=== PATIENT | male | born 1950 | race Caucasian/White ===

== ENCOUNTER 2020-01-08 05:03 | Inpatient (IN) | payer MEDICARE ==
[~2020-01-08] VITALS: Ht 177.8 cm; Wt 97.7 kg
[2020-01-08] MEDS ORDERED: ASPirin 81 mg TAB PO ONE (05:15)
[2020-01-08 07:19] LABS: Basophils # (auto) 0 10 ^3/uL (0-0.2); Basophils % (auto) 0.4 % (0.0-2.0); Eosinophils # (auto) 0.1 10 ^3/uL (0-0.8); Eosinophils % (auto) 0.5 % (0.0-7.0); Hematocrit 47.7 % (41.0-53.0); Hemoglobin 16.5 g/dL (13.5-17.5); Lymphocytes # (auto) 1.3 10 ^3/uL (0.4-5.4); Lymphocytes % (auto) 9.8 % (10.0-50.0); Mean Corpuscular Hemoglobin 28.7 pg (28.0-32.0); Mean Corpuscular Hgb Conc. 34.6 g/dL (32.0-36.0); Mean Corpuscular Volume 82.9 fL (80.0-100.0); Monocytes % (auto) 7.8 % (0.0-12.0); Neutrophils # (auto) 10.7 10 ^3/uL (1.6-8.6); Neutrophils % (auto) 81.5 % (37.0-80.0); Platelet Count (auto) 133 10^3/uL (140-450); Red Blood Cells 5.76 10^6/uL (4.5-5.90); Red Cell Distribution Width 14.2 % (11.8-14.3); White Blood Cell 13.1 10^3/uL (4.4-10.8)
[2020-01-08] MEDS ORDERED: cloNIDine HCL 0.1 MG TAB PO ONE (07:30)
[2020-01-08 07:31] LABS: INR 1.03 (0.9-1.15); Partial Thromboplastin Time 26.7 sec (23.0-31.2)
[2020-01-08 07:36] LABS: Potassium 3.5 mmol/L (3.5-5.1)
[2020-01-08 07:48] LABS: Albumin 4.1 g/dL (3.4-5.0); BUN/Creatinine Ratio 19.5; Bilirubin, Total 0.7 mg/dL (0.2-1.0); Magnesium 2.2 mg/dL (1.6-2.6); Total Protein 7.4 g/dL (6.4-8.2)
[2020-01-08] MEDS ORDERED: LACTULOSE 20Gm/30ML SOLN PO PRN (09:00)
[2020-01-08] MEDS ORDERED: ACETAMINOPHEN 500 MG TAB PO PRN (09:00)
[2020-01-08] MEDS ORDERED: NITROGLYCERIN 0.4 MG SL TAB SL PRN (09:00)
[2020-01-08] MEDS ORDERED: MORPHINE SULF INJ 2 MG/ML SYRINGE 1ML IV PRN (09:00)
[2020-01-08] MEDS ORDERED: PROMETHAZINE HCL 25 MG/ML 1ML IV PRN (09:00)
[2020-01-08] MEDS ORDERED: TEMAZEPAM 15 MG CAP PO PRN (09:00)
[2020-01-08] MEDS ORDERED: DEXTROSE (50%) 50ML SYRG IV PRN (09:00)
[2020-01-08] MEDS ORDERED: NITROGLYCERIN 50MG/250ML 250 ML IV SCH (09:00)
[2020-01-08] MEDS: SODIUM CHLORIDE 0.9% 1,000 ML IV SCH ×2 (09:33→22:36)
[2020-01-08] MEDS: ASPirin 81 mg TAB PO SCH (09:34)
[2020-01-08] MEDS: FAMOTIDINE 20 MG TAB PO SCH ×2 (09:34→22:35)
[2020-01-08] MEDS: METOPROLOL TARTRATE 25 MG TAB PO SCH ×2 (09:34→22:35)
[2020-01-08] MEDS: ENOXAPARIN SOD 40 MG/0.4 ML SYRINGE SC SCH (09:34)
[2020-01-08] MEDS: ENALAPRIL MALEATE 10 MG TAB PO SCH (09:37)
[2020-01-08] MEDS ORDERED: NITROGLYCERIN 0.4 MG SL TAB SL ONE (10:00)
[2020-01-08 10:10] LABS: Alcohol, Urine < 3.0 mg/dL (0-10); Amphetamine Screen, Urine NEGATIVE (NEGATIVE); Barbiturate Scree,Urine NEGATIVE (NEGATIVE); Cannabinoid Screen, Urine POSITIVE (NEGATIVE)
[2020-01-08 10:17] LABS: Benzodiazephine Screen, Urine NEGATIVE (NEGATIVE); Cocaine Screen, Urine NEGATIVE (NEGATIVE); Opiate Scree,Urine NEGATIVE (NEGATIVE); Phencyclidine Screen, Urine NEGATIVE (NEGATIVE)
[2020-01-08] MEDS ORDERED: CLOPIDOGREL BISULFATE 75 MG TAB PO ONE (10:45)
[2020-01-08] MEDS: InsuLIN REG 1unit/0.01ml Soln (100units/ml) SC SCH ×3 (11:55→22:00)
[2020-01-08] MEDS: ACCU-CHEK COMFORT CURVE STRIP VI SCH ×3 (12:02→22:36)
[2020-01-08] MEDS ORDERED: IBAN1TAB3 PO (13:06)
[2020-01-08] MEDS ORDERED: PAR20T PO (13:06)
[2020-01-08] MEDS ORDERED: LISI-646 PO (13:06)
[2020-01-08] MEDS ORDERED: TAM04C PO (13:06)
[2020-01-08] MEDS ORDERED: FLUT1SPR5 NAS (13:06)
[2020-01-08] MEDS ORDERED: ATE50T PO (13:06)
[2020-01-08] MEDS ORDERED: CLOP75TA28 PO (13:06)
[2020-01-08] MEDS ORDERED: ATOR1TAB PO (13:06)
[2020-01-08] MEDS ORDERED: [UNRECOGNIZED DRUG - CODE] PO (13:06)
[2020-01-08] MEDS ORDERED: NIFEdipine ER 30 MG TAB PO ONE (14:00)
[2020-01-08] MEDS: traMADol HCL 50 MG TAB PO PRN (20:14)
[2020-01-08] MEDS ORDERED: LORazepam 2MG/ML-1ML VIAL IV ONE (22:00)
[2020-01-08] MEDS: ATORVASTATIN 20 MG TAB PO SCH (22:35)
[2020-01-09] VITALS (8 sets, daily range): BP systolic 150–176; BP diastolic 84–110
[2020-01-09] MEDS: ACCU-CHEK COMFORT CURVE STRIP VI SCH ×4 (06:33→23:00)
[2020-01-09] MEDS: InsuLIN REG 1unit/0.01ml Soln (100units/ml) SC SCH ×4 (06:37→23:00)
--- NOTE | 2020-01-09 07:35 | NUR ---
Opening Note Assumed pt care from TYSHAWN RN. Pt is a/ox4 with no s/s of distress or SOB. Pt is currently laying in bed with no complaints at this time. Pt is currently on 3 L via NC. Discussed POC with pt and pending [facility]. Pt has been NPO since 0000. Safety measures maintained with call light within reach, bed in lowest position and side rails up. Will continue to monitor for changes.
[2020-01-09 07:57] LABS: Basophils # (auto) 0 10 ^3/uL (0-0.2); Basophils % (auto) 0.3 % (0.0-2.0); Eosinophils # (auto) 0.1 10 ^3/uL (0-0.8); Eosinophils % (auto) 1.2 % (0.0-7.0); Hematocrit 46.8 % (41.0-53.0); Hemoglobin 15.9 g/dL (13.5-17.5); Lymphocytes # (auto) 1.8 10 ^3/uL (0.4-5.4); Lymphocytes % (auto) 17.3 % (10.0-50.0); Mean Corpuscular Hemoglobin 28.4 pg (28.0-32.0); Mean Corpuscular Hgb Conc. 33.9 g/dL (32.0-36.0); Mean Corpuscular Volume 83.7 fL (80.0-100.0); Monocytes # (auto) 1.6 10 ^3/uL (0-1.3); Monocytes % (auto) 15.3 % (0.0-12.0); Neutrophils % (auto) 65.9 % (37.0-80.0); Nucleated Red Blood Cells % 0.2 %; Platelet Count (auto) 128 10^3/uL (140-450); Red Cell Distribution Width 14.3 % (11.8-14.3); White Blood Cell 10.6 10^3/uL (4.4-10.8)
[2020-01-09 08:14] LABS: INR 1.07 (0.9-1.15); Partial Thromboplastin Time 26.8 sec (23.0-31.2)
[2020-01-09 08:27] LABS: Albumin 3.8 g/dL (3.4-5.0); BUN/Creatinine Ratio 21.4; Calcium 9.2 mg/dL (8.5-10.1); Potassium 3.5 mmol/L (3.5-5.1)
[2020-01-09 08:33] LABS: Bilirubin, Total 0.7 mg/dL (0.2-1.0)
[2020-01-09] MEDS: ASPirin 81 mg TAB PO SCH (08:43)
[2020-01-09] MEDS: ENOXAPARIN SOD 40 MG/0.4 ML SYRINGE SC SCH (08:44)
[2020-01-09] MEDS: ENALAPRIL MALEATE 10 MG TAB PO SCH (08:48)
[2020-01-09] MEDS: CLOPIDOGREL BISULFATE 75 MG TAB PO SCH (08:48)
[2020-01-09] MEDS: NIFEdipine ER 30 MG TAB PO SCH (08:48)
[2020-01-09] MEDS: FAMOTIDINE 20 MG TAB PO SCH (08:48)
[2020-01-09] MEDS: METOPROLOL TARTRATE 25 MG TAB PO SCH (08:49)
--- NOTE | 2020-01-09 10:40 | NUR ---
MIDLINE SPOKE WITH KELSY RAMIREZ RN REGARDING MIDLINE ORDER. KELSY STATED HE HAS A GOOD 20 G TO HIS RIGHT HAND AT THIS TIME AN NO MIDLINE IS REQUIRED.
[2020-01-09] MEDS: SODIUM CHLORIDE 0.9% 1,000 ML IV SCH (11:14)
[2020-01-09] MEDS ORDERED: LIDOCAINE 2%HCL (LOCAL ANESTH.) INJ 20ML MDV ONE (12:16)
[2020-01-09] MEDS ORDERED: IODIXANOL 320MG/ML 100ML BTL IV ONE (12:16)
--- NOTE | 2020-01-09 12:19 | NUR ---
Pt Taken to [facility] Pt taken via bed to crime lab technician. All questions were answered by staff. Pt is a/ox4 with no s/s of distress.
[2020-01-09] MEDS ORDERED: VERAPAMIL 2.5MG/ML INJ 2ML VIAL IV ONE (14:05)
[2020-01-09] MEDS ORDERED: ANGIOMAX 250 MG VIAL IV ONE (14:05)
[2020-01-09] MEDS ORDERED: MIDAZOLAM HCL 1MG/1ML-2 ML VIAL ONE (14:05)
[2020-01-09] MEDS ORDERED: fentaNYL CITRATE 100 MCG/2 ML VL ONE (14:05)
[2020-01-09] MEDS ORDERED: HEPARIN SODIUM (PORCINE) 5000 UNITS/ML 1ML VIAL ONE (14:05)
[2020-01-09] MEDS ORDERED: SODIUM CHL 0.9% 0 ML ONE (14:06)
[2020-01-09] MEDS ORDERED: IOHEXOL 350 MG/ML 100ML IJ ONE (14:18)
[2020-01-09] MEDS ORDERED: METOPROLOL TARTRATE 1MG/1ML-5ML VIAL IV ONE (14:46)
[2020-01-09] MEDS ORDERED: ASPirin 81 mg TAB ONE (14:57)
--- NOTE | 2020-01-09 15:02 | NUR ---
Patient brought to recovery via bed, report received from Torie RN and Lorne RN. Patient is AO x 4, NAD noted. Right groin site is benign no s/s of bleeding or hematoma formation. Dressing in place and is CDI. Positive cirulation, movement and sensation noted to BLE. Patient denies pain at this time. Verbalized understanding to post-procedure instructions and flat time.
--- NOTE | 2020-01-09 15:17 | NUR ---
Patient resting in bed with eyes closed. Breaths are even and unlabored. NAD noted. Right groin site remains unchanged.
--- NOTE | 2020-01-09 15:35 | NUR ---
Report given to primary RN, Roxanne.
--- NOTE | 2020-01-09 15:55 | NUR ---
Patient taken to telemetry unit via bed, vehicle monitor technician in place. NAD noted upon departure. Primary RNRoxanne present at bedside to witness right groin site benign no s/s of bleeding or hematoma formation. Bed set in lowest locked position with side rails up x 2, call light is within reach and bed alarm set on for safety. Care endorsed to AKHIL Oliveira.
--- NOTE | 2020-01-09 16:00 | NUR ---
Pt Back on Unit Pt arrived back on unit from general laborer. Pt is a/ox4 with no s/s of distress. Site to R groin is clean, dry and intact. Safety measures initiated with call light within reach, bed in lowest position and side rails up. Will continue to monitor. Addendum: 01/09/20 at 1617 by PHIL SCHAFER RN RN Elevated BP upon arrival to unit. Will recheck and reassess BP and utilize PRNS as needed. Addendum: 01/09/20 at 1711 by PHIL SCHAFER RN RN Pt has sat up. Site is asymptomatic. Will continue to monitor.
[2020-01-10] MEDS: ATORVASTATIN 20 MG TAB PO SCH ×2 (00:15→22:00)
[2020-01-10] MEDS: METOPROLOL TARTRATE 25 MG TAB PO SCH ×2 (00:17→10:31)
[2020-01-10] MEDS: FAMOTIDINE 20 MG TAB PO SCH ×3 (00:17→22:00)
[2020-01-10] MEDS: traMADol HCL 50 MG TAB PO PRN (00:18)
[2020-01-10] MEDS: SODIUM CHLORIDE 0.9% 1,000 ML IV SCH ×2 (00:40→14:20)
--- NOTE | 2020-01-10 03:18 | NUR ---
Pt had episode of syncope while sitting on side of bed attempting to stand to use urinal falling backard across foot of bed. Pt quickly regained consciousness. Yolanda and Lorri, Jeffrey, with pt and state he regained consciouness upon falling across bed. Pt voided incont while lieing on bed. Linens an gown changed. Repositione in bed by the Esha and this RN and AKHIL Hanna. Pt suddenly cried out and tried to reach for urinal. Small amount urine in urinal. Cyndi assisting pt, urine poured out on bed. Pt able to complete void into urinal. Yolanda and this RN changed pt's linens again and gown. VS 153/72; HR 69; RR 20; and O2 sat on RA. O2 replaced at 3lpm. Pt supine in bed with HOB in semi-Cruz's position. Easily dropping back off to sleep then roused to c/o nausea. Promethazine 12.5 mg slow IV given. BG 165. Pt again attempting to sleep.
[2020-01-10 05:00] VITALS: BP 153/72
[2020-01-10] MEDS: ACCU-CHEK COMFORT CURVE STRIP VI SCH ×4 (06:57→22:00)
[2020-01-10] MEDS: InsuLIN REG 1unit/0.01ml Soln (100units/ml) SC SCH ×4 (07:00→22:00)
--- NOTE | 2020-01-10 08:00 | NUR ---
OPENING SHIFT NOTE ASSUMED CARE OF PATIENT AWAKE AND ALERT. NO S/S OF DISTRESS NOTED OR COMPLAINTS OF PAIN. PATIENT UPDATED ON POC FOR THE DAY AND ALL QUESTIONS ANSWERED. BED IS IN LOWEST, LOCKED POSITION WITH SIDE RAILS UP X2 AND CALL LIGHT WITHIN REACH. WILL CONTINUE TO MONITOR Q1H AND PRN.
--- NOTE | 2020-01-10 08:02 | NUR ---
AT BEDSIDE DR PETERSEN AT BEDSIDE ROUNDING ON PATIENT
[2020-01-10 09:00] VITALS: BP 154/89
[2020-01-10 09:24] LABS: Basophils # (auto) 0 10 ^3/uL (0-0.2); Basophils % (auto) 0.4 % (0.0-2.0); Eosinophils # (auto) 0.1 10 ^3/uL (0-0.8); Eosinophils % (auto) 1.4 % (0.0-7.0); Lymphocytes # (auto) 1.8 10 ^3/uL (0.4-5.4); Mean Corpuscular Hgb Conc. 33.5 g/dL (32.0-36.0); Monocytes # (auto) 1.3 10 ^3/uL (0-1.3)
[2020-01-10 09:26] LABS: Hematocrit 51.1 % (41.0-53.0); Hemoglobin 17.1 g/dL (13.5-17.5); Lymphocytes % (auto) 18.5 % (10.0-50.0); Mean Corpuscular Volume 83.7 fL (80.0-100.0); Monocytes % (auto) 13.4 % (0.0-12.0); Neutrophils # (auto) 6.5 10 ^3/uL (1.6-8.6); Neutrophils % (auto) 66.3 % (37.0-80.0); Platelet Count (auto) 158 10^3/uL (140-450); Red Cell Distribution Width 14.3 % (11.8-14.3); White Blood Cell 9.8 10^3/uL (4.4-10.8)
[2020-01-10 09:30] LABS: Albumin 3.9 g/dL (3.4-5.0); Calcium 9.3 mg/dL (8.5-10.1); Magnesium 2.3 mg/dL (1.6-2.6); Potassium 3.5 mmol/L (3.5-5.1)
[2020-01-10 09:34] LABS: Total Protein 7.5 g/dL (6.4-8.2)
[2020-01-10] MEDS: ASPirin 81 mg TAB PO SCH (10:31)
[2020-01-10] MEDS: CLOPIDOGREL BISULFATE 75 MG TAB PO SCH (10:32)
[2020-01-10] MEDS: NIFEdipine ER 30 MG TAB PO SCH (10:32)
[2020-01-10] MEDS: ENALAPRIL MALEATE 10 MG TAB PO SCH (10:33)
[2020-01-10 13:00] VITALS: BP 166/87
--- NOTE | 2020-01-10 13:00 | NUR ---
HYPERTENSION PATIENT BLOOD PRESSURE IS 166/87. PRN CLONIDINE GIVEN. BLOOD PRESSURE UPON REASSESSMENT 162/76. PATIENT IS ASYMPTOMATIC AT THIS TIME. WILL CONTINUE CARE.
[2020-01-10] MEDS: cloNIDine HCL 0.1 MG TAB PO PRN ×2 (13:05→15:22)
--- NOTE | 2020-01-10 15:20 | NUR ---
HYPERTENSION PATIENT'S BLOOD PRESSURE IS 162/82. PO CLONIDINE GIVEN. BLOOD PRESSURE REASSESSMENT IS 159/77. PATIENT COMPLAINING OF FEELING "LIKE I WANNA PASS OUT." SAFETY MEASURES FOR FALL PREVENTION IN PLACE. WILL CONTINUE TO MONITOR Q1H AND PRN.
--- NOTE | 2020-01-10 17:54 | NUR ---
FARM IMPLEMENT MECHANIC PAGED ON-CALL HOSPITALIST KEITH PAGED REGARDING BLOOD PRESSURE. AWAITING CALL BACK, WILL CONTINUE CARE.
--- NOTE | 2020-01-10 17:57 | NUR ---
SPOKE WITH ADMITTING INTERVIEWER RECEIVED RETURN CALL FROM KEITH. NEW ORDERS RECEIVED, READ BACK AND VERIFIED. WILL CARRY OUT AND CONTINUE CARE.
[2020-01-10] MEDS ORDERED: ENALAPRIL MALEATE 10 MG TAB PO ONE (18:00)
[2020-01-10] MEDS: METOPROLOL TARTRATE 50 MG TAB PO SCH (22:00)
[2020-01-10 22:53] VITALS: BP 139/88
[2020-01-11] MEDS: cloNIDine HCL 0.1 MG TAB PO PRN ×2 (00:05→02:28)
--- NOTE | 2020-01-11 01:25 | NUR ---
HYPERTENSION The patient's blood pressure is 182/80. Patient has been given Clonidine 0.1 mg PRN. Blood pressure upon reassessment is 159/88. Will continue to monitor the patient's blood pressure.
[2020-01-11] MEDS: SODIUM CHLORIDE 0.9% 1,000 ML IV SCH (03:40)
--- NOTE | 2020-01-11 03:45 | NUR ---
HYPERTENSION The patient's blood pressure is 180/90. Patient has been given Clonidine 0.1 mg PRN. Patient is asymptomatic. Blood pressure upon reassessment is 152/92. Will continue to monitor the patient's blood pressure.
[2020-01-11 05:37] VITALS: BP 148/92
[2020-01-11] MEDS: InsuLIN REG 1unit/0.01ml Soln (100units/ml) SC SCH ×2 (06:45→06:48)
[2020-01-11] MEDS: ACCU-CHEK COMFORT CURVE STRIP VI SCH (06:46)
--- NOTE | 2020-01-11 08:28 | NUR ---
AT BEDSIDE DR PETERSEN AT BEDSIDE ROUNDING ON PATIENT. PATIENT IS HOSTILE TOWARDS MD, SCREAMING "YOU ARE ALL INCOMPETENT!" PATIENT IS ADAMANT THAT HE WANTS TO GO HOME TODAY DESPITE PERSISTENT HYPERTENSION. WILL CONTINUE CARE.
[2020-01-11] MEDS ORDERED: cloNIDine HCL 0.1 MG TAB PO PRN (08:30)
[2020-01-11] MEDS: NIFEdipine ER 30 MG TAB PO SCH ×2 (08:30→10:02)
[2020-01-11 08:45] VITALS: BP 130/84
[2020-01-11] MEDS: traMADol HCL 50 MG TAB PO PRN (09:30)
[2020-01-11] MEDS: FAMOTIDINE 20 MG TAB PO SCH (09:59)
[2020-01-11] MEDS: ASPirin 81 mg TAB PO SCH (09:59)
[2020-01-11] MEDS: CLOPIDOGREL BISULFATE 75 MG TAB PO SCH (09:59)
[2020-01-11] MEDS ORDERED: ENALAPRIL MALEATE 10 MG TAB PO SCH (10:00)
[2020-01-11] MEDS: METOPROLOL TARTRATE 50 MG TAB PO SCH (10:02)
--- NOTE | 2020-01-11 11:33 | NUR ---
Discharge instructions given as ordered. Encourage to follow up with PMD as instructed. All questions and concerns addressed. Patient verbalized understanding. IV removed with catheter intact, pressure dressing applied. Telemetry unit returned to ICU. Patient taken to vehicle via wheelchair with all personal belongings, accompanied by staff. No distress noted at time of departure.
== END 2020-01-11 11:30 | disposition home or self-care (01) | DRG 286 ==
LOC: ER 05:03 → TELE 05:04 → TELE-CENTR 01-09 02:57
PROVIDERS: ADMIT Internal Medicine; ATTEND Family Medicine
PROC: 4A023N7 Measurement of Cardiac Sampling and Pressure, Left Heart, Percutaneous Approach (ICD-10-PCS; principal; 2020-01-09)
PROC: B2111ZZ Fluoroscopy of Multiple Coronary Arteries using Low Osmolar Contrast (ICD-10-PCS; 2020-01-09)
PROC: B2151ZZ Fluoroscopy of Left Heart using Low Osmolar Contrast (ICD-10-PCS; 2020-01-09)
PROC: B2181ZZ Fluoroscopy of Left Internal Mammary Bypass Graft using Low Osmolar Contrast (ICD-10-PCS; 2020-01-09)
PROC: B2131ZZ Fluoroscopy of Multiple Coronary Artery Bypass Grafts using Low Osmolar Contrast (ICD-10-PCS; 2020-01-09)
DX: I25.719 Atherosclerosis of autologous vein coronary artery bypass graft(s) with unspecified angina pectoris (principal); I50.41 Acute combined systolic (congestive) and diastolic (congestive) heart failure; E87.1 Hypo-osmolality and hyponatremia; I16.0 Hypertensive urgency; I11.0 Hypertensive heart disease with heart failure; D72.829 Elevated white blood cell count, unspecified; E11.65 Type 2 diabetes mellitus with hyperglycemia; E66.9 Obesity, unspecified; R55 Syncope and collapse; E78.00 Pure hypercholesterolemia, unspecified; E78.5 Hyperlipidemia, unspecified; I25.2 Old myocardial infarction; Z68.31 Body mass index [BMI] 31.0-31.9, adult; Z79.84 Long term (current) use of oral hypoglycemic drugs; Z95.5 Presence of coronary angioplasty implant and graft; Z83.3 Family history of diabetes mellitus; Z82.49 Family history of ischemic heart disease and other diseases of the circulatory system; Z95.1 Presence of aortocoronary bypass graft
CPT/HCPCS: 36415; 70450; 71045; 80053; 80061; 80307; 82550; 82962; 83036; 83735; 83880; 84484; 85025; 85379; 85610; 85652; 85730; 86141; 86850; 86900; 86901; 93005; 93306; 93459; 93970; 96365; 96372; 99152; G0378; J1815; J2250; Q9967

== ENCOUNTER 2020-09-15 04:00 | Emergency (ER) | payer MEDICARE ==
[~2020-09-15] VITALS: Ht 177.8 cm; Wt 89.8 kg
[~2020-09-15 04:00] MED LIST: ATE50T PO; ATOR-47 PO; CLOP75TA28 PO; FLUT1SPR5 NAS; IBAN1TAB3 PO; LISI20TA28 PO; PAR20T PO; TAM04C PO; [UNRECOGNIZED DRUG - CODE] PO
[2020-09-15 05:48] LABS: Urine WBC None Seen /hpf (0 - 3)
[2020-09-15 06:37] LABS: Urine Bacteria FEW /hpf (None Seen); Urine Blood Negative /uL (Negative); Urine Specific Gravity 1.009 (1.001-1.035)
[2020-09-15 08:00] VITALS: BP 141/75
[2020-09-15 08:08] LABS: Basophils # (auto) 0.1 10 ^3/uL (0-0.2); Basophils % (auto) 0.6 % (0.0-2.0); Eosinophils # (auto) 0.1 10 ^3/uL (0-0.8); Eosinophils % (auto) 1.5 % (0.0-7.0); Hemoglobin 15.3 g/dL (13.5-17.5); Lymphocytes % (auto) 19.8 % (10.0-50.0); Mean Corpuscular Hemoglobin 28.5 pg (28.0-32.0); Mean Corpuscular Hgb Conc. 34.7 g/dL (32.0-36.0); Mean Corpuscular Volume 82.3 fL (80.0-100.0); Monocytes # (auto) 1.2 10 ^3/uL (0-1.3); Monocytes % (auto) 11.7 % (0.0-12.0); Neutrophils # (auto) 6.8 10 ^3/uL (1.6-8.6); Neutrophils % (auto) 66.4 % (37.0-80.0); Nucleated Red Blood Cells % 0.1 %; Red Blood Cells 5.35 10^6/uL (4.5-5.90); Red Cell Distribution Width 14.4 % (11.8-14.3); White Blood Cell 10.2 10^3/uL (4.4-10.8)
[2020-09-15 08:27] LABS: Albumin 4.1 g/dL (3.4-5.0); BUN/Creatinine Ratio 20.2; Calcium 9.2 mg/dL (8.5-10.1); Potassium 3.6 mmol/L (3.5-5.1)
[2020-09-15 08:32] LABS: Bilirubin, Total 0.7 mg/dL (0.2-1.0); Total Protein 6.9 g/dL (6.4-8.2)
[2020-09-15] MEDS ORDERED: ACETAMINOPHEN 325 MG TAB PO ONE (08:45)
[2020-09-15] MEDS ORDERED: LORazepam 2MG/ML-1ML VIAL IV ONE (08:45)
== END 2020-09-15 09:32 | disposition home or self-care (01) ==
LOC: ER 04:00 → EDBD 04:00 → ER 09:32
DX: I10 Essential (primary) hypertension (principal); F41.8 Other specified anxiety disorders; I25.810 Atherosclerosis of coronary artery bypass graft(s) without angina pectoris; I25.2 Old myocardial infarction; F17.210 Nicotine dependence, cigarettes, uncomplicated; Z95.1 Presence of aortocoronary bypass graft; Z79.01 Long term (current) use of anticoagulants; Z79.899 Other long term (current) drug therapy; Z88.5 Allergy status to narcotic agent
CPT/HCPCS: 36415; 80053; 81001; 84484; 85025; 93005; 96374; 99285; J2060

== ENCOUNTER 2022-12-06 12:48 | Inpatient (IN) | payer OTHER, MEDICAID ==
[~2022-12-06] VITALS: Ht 177.8 cm; Wt 88.1 kg
[2022-12-06] VITALS (42 sets, daily range): BP systolic 103–158; BP diastolic 64–93; PULSE 58–95; RESP 10–24; TEMP 98–98.4; O2SAT 85–100
[~2022-12-06 12:48] MED LIST changes: -LISI20TA28 PO; +LISI20TA56 PO; -TAM04C PO; +TAMS-35 PO
[2022-12-06] MEDS ORDERED: ONDANSETRON HCL 4 MG/2 ML VIAL IV ONE (13:15)
[2022-12-06] MEDS ORDERED: HEPARIN SODIUM (PORCINE) 5000 UNITS/ML 1ML VIAL ONE (13:25)
[2022-12-06] MEDS ORDERED: VERAPAMIL 2.5MG/ML INJ 2ML VIAL IV ONE (13:25)
[2022-12-06] MEDS ORDERED: fentaNYL CITRATE 100 MCG/2 ML VL ONE (13:25)
[2022-12-06] MEDS ORDERED: ANGIOMAX 250 MG VIAL IV ONE (13:25)
[2022-12-06] MEDS ORDERED: LIDOCAINE 2%HCL (LOCAL ANESTH.) INJ 20ML MDV ONE (13:26)
[2022-12-06] MEDS ORDERED: MIDAZOLAM HCL 2MG/2ML 2ml VIAL (1mg/ml) ONE (13:26)
[2022-12-06] MEDS ORDERED: IODIXANOL 320MG/ML 100ML BTL IV ONE ×2 (13:26→14:25)
[2022-12-06] MEDS ORDERED: SODIUM CHL 0.9% 50 ML ONE (13:26)
[2022-12-06] MEDS ORDERED: HEPARIN SODIUM (PORCINE) 5000 UNITS/ML 1ML VIAL IV ONE (13:30)
[2022-12-06] MEDS ORDERED: ASPirin-EC 325mg tab PO ONE (13:30)
[2022-12-06] MEDS: hydrALAZINE HCL 20 MG/ML VL IV PRN (13:40)
[2022-12-06 13:44] LABS: Basophils # (auto) 0.1 10 ^3/uL (0-0.2); Basophils % (auto) 0.3 % (0.0-2.0); Eosinophils # (auto) 0 10 ^3/uL (0-0.8); Nucleated Red Blood Cells % 1.3 %
[2022-12-06 13:46] LABS: Hematocrit 53.5 % (41.0-53.0); Hemoglobin 18.7 g/dL (13.5-17.5); Lymphocytes # (auto) 1.5 10 ^3/uL (0.4-5.4); Lymphocytes % (auto) 6.7 % (10.0-50.0); Mean Corpuscular Hemoglobin 29.5 pg (28.0-32.0); Mean Corpuscular Hgb Conc. 34.9 g/dL (32.0-36.0); Mean Corpuscular Volume 84.6 fL (80.0-100.0); Monocytes # (auto) 2.5 10 ^3/uL (0-1.3); Monocytes % (auto) 11.2 % (0.0-12.0); Neutrophils # (auto) 17.9 10 ^3/uL (1.6-8.6); Neutrophils % (auto) 81.8 % (37.0-80.0); Red Blood Cells 6.33 10^6/uL (4.5-5.90); White Blood Cell 21.9 10^3/uL (4.4-10.8)
[2022-12-06 14:00] LABS: INR 1.13 (0.9-1.15); Partial Thromboplastin Time 28.7 SEC (24.5-34.5); Prothrombin Time 11.8 sec (9.3-11.8)
[2022-12-06 14:02] LABS: Alanine Aminotransferase 30 U/L (7-40); Albumin 5.8 g/dL (3.2-4.8); Alkaline Phosphatase 84 U/L (46-116); Anion Gap 12 (5-15); Aspartate Aminotransferase 26 U/L (13-40); BUN/Creatinine Ratio 15.3 (10.0-20.0); Blood Urea Nitrogen 26 mg/dL (9-23); Calcium 11.1 mg/dL (8.7-10.4); Carbon Dioxide 23 mmol/L (20-30); Chloride 100 mmol/L (98-107); Glucose 223 mg/dL (74-106); Magnesium 1.8 mg/dL (1.6-2.6); Potassium 4.1 mmol/L (3.5-5.1); Sodium 135 mmol/L (136-145)
[2022-12-06 14:03] LABS: Total Protein 8.7 g/dL (5.7-8.2)
[2022-12-06 14:22] LABS: Triglycerides 218 mg/dL (< 150)
[2022-12-06 14:23] LABS: LDL Cholesterol 66 mg/dL (< 100)
[2022-12-06 14:24] LABS: Cholesterol 136 mg/dL (< 200); HDL Cholesterol 41 mg/dL (40-59)
[2022-12-06] MEDS ORDERED: MORPHINE SULFATE INJ 2 MG/ml SYRG IV PRN ×2 (14:30→15:45)
[2022-12-06] MEDS ORDERED: NITROGLYCERIN 0.4 MG SL TAB SL PRN ×3 (14:30→16:30)
[2022-12-06] MEDS ORDERED: NITROGLYCERIN 50MG/250ML 250 ML IV SCH (14:55)
[2022-12-06] MEDS ORDERED: HYDROmorphone HCL 2 MG/ML VL/or syr ONE (15:53)
[2022-12-06] MEDS ORDERED: PANTOPRAZOLE 40 MG TAB PO ONE (16:00)
[2022-12-06] MEDS ORDERED: SODIUM CHLORIDE 0.9% 1,000 ML IV ONE (16:15)
[2022-12-06] MEDS ORDERED: OPTISON 3ml Vial for INJ IV ONE ×2 (17:22→17:30)
[2022-12-06] MEDS: ONDANSETRON HCL 4 MG/2 ML VIAL IV PRN ×2 (17:33→23:36)
[2022-12-06] MEDS ORDERED: NITROGLYCERIN 50MG/250ML 250 ML IV ONE (17:45)
[2022-12-06] MEDS: PROMETHAZINE HCL 25 MG/ML 1ML IV PRN (19:38)
[2022-12-06] MEDS: METOPROLOL TARTRATE 25 MG TAB PO SCH (21:15)
[2022-12-06] MEDS: ATORVASTATIN 20 MG TAB PO SCH (21:15)
[2022-12-06] MEDS ORDERED: FUROSEMIDE 40 MG/4 ML VIAL IV ONE (22:45)
[2022-12-06] MEDS: ACETAMINOPHEN 325 MG TAB PO PRN (22:50)
[2022-12-06 23:10] LABS: Urine Bacteria NONE SEEN /hpf (None Seen); Urine Blood 3+ /uL (Negative); Urine Clarity Clear (Clear); Urine Color Yellow (Yellow); Urine Protein, UAD 3+ (Negative); Urine Specific Gravity > 1.050 (1.001-1.035); Urine Urobilinogen Normal (Negative); Urine WBC 3 /hpf (0 - 3); Urine pH 6.5 (5.0-8.0)
[2022-12-07] VITALS (81 sets, daily range): BP systolic 103–221; BP diastolic 56–113; PULSE 56–97; RESP 6–31; TEMP 97.8–99.2; O2SAT 63–100
[2022-12-07] MEDS: PROMETHAZINE HCL 25 MG/ML 1ML IV PRN (03:09)
[2022-12-07 04:33] LABS: Basophils # (auto) 0 10 ^3/uL (0-0.2); Basophils % (auto) 0.2 % (0.0-2.0); Eosinophils # (auto) 0 10 ^3/uL (0-0.8); Eosinophils % (auto) 0.2 % (0.0-7.0); Hematocrit 46.2 % (41.0-53.0); Hemoglobin 15.8 g/dL (13.5-17.5); Lymphocytes # (auto) 1.7 10 ^3/uL (0.4-5.4); Lymphocytes % (auto) 9.3 % (10.0-50.0); Mean Corpuscular Hemoglobin 29.1 pg (28.0-32.0); Mean Corpuscular Hgb Conc. 34.2 g/dL (32.0-36.0); Monocytes # (auto) 3.1 10 ^3/uL (0-1.3); Monocytes % (auto) 17.2 % (0.0-12.0); Neutrophils # (auto) 13.2 10 ^3/uL (1.6-8.6); Neutrophils % (auto) 73.1 % (37.0-80.0); Red Blood Cells 5.43 10^6/uL (4.5-5.90)
[2022-12-07 05:12] LABS: Alanine Aminotransferase 19 U/L (7-40); Albumin 4.7 g/dL (3.2-4.8); Alkaline Phosphatase 61 U/L (46-116); Anion Gap 8 (5-15); Aspartate Aminotransferase 22 U/L (13-40); BUN/Creatinine Ratio 19.5 (10.0-20.0); Blood Urea Nitrogen 24 mg/dL (9-23); Calcium 9.7 mg/dL (8.7-10.4); Carbon Dioxide 25 mmol/L (20-30); Chloride 103 mmol/L (98-107); Glucose 141 mg/dL (74-106); Potassium 3.5 mmol/L (3.5-5.1); Sodium 136 mmol/L (136-145)
[2022-12-07 05:13] LABS: Bilirubin, Total 0.8 mg/dL (0.2-1.0); Total Protein 7.1 g/dL (5.7-8.2)
[2022-12-07 06:18] LABS: Triglycerides 209 mg/dL (< 150)
[2022-12-07 06:19] LABS: LDL Cholesterol 53 mg/dL (< 100)
[2022-12-07 06:20] LABS: Cholesterol 115 mg/dL (< 200); HDL Cholesterol 32 mg/dL (40-59)
[2022-12-07] MEDS ORDERED: IOHEXOL 350 MG/ML 100ML IJ ONE (07:41)
[2022-12-07] MEDS: HYDROmorphone HCL 2 MG/ML VL/or syr IV PRN ×4 (08:24→23:33)
[2022-12-07] MEDS: METOPROLOL TARTRATE 25 MG TAB PO SCH ×2 (08:47→23:26)
[2022-12-07] MEDS: PANTOPRAZOLE 40 MG TAB PO SCH (08:47)
[2022-12-07] MEDS ORDERED: LISINOPRIL 20 MG TAB PO SCH ×2 (10:00)
[2022-12-07] MEDS ORDERED: ASPirin 81 mg TAB PO SCH (10:00)
[2022-12-07] MEDS ORDERED: CLOPIDOGREL BISULFATE 75 MG TAB PO SCH (10:00)
[2022-12-07] MEDS ORDERED: cefTRIAXone 1GM/50ML D5W 50 ML IV ONE (11:00)
[2022-12-07] MEDS ORDERED: DEXTROSE (50%) 50ML SYRG IV PRN (11:00)
[2022-12-07] MEDS: hydrALAZINE HCL 20 MG/ML VL IV PRN (12:06)
[2022-12-07] MEDS: ACCU-CHEK COMFORT CURVE STRIP VI SCH ×3 (12:06→23:27)
[2022-12-07] MEDS: InsuLIN REG 1unit/0.01ml Soln (100units/ml) SC SCH ×3 (12:17→23:40)
[2022-12-07] MEDS: ONDANSETRON HCL 4 MG/2 ML VIAL IV PRN (13:23)
[2022-12-07] MEDS: FUROSEMIDE 20 MG/2 ML VIAL IV SCH (17:05)
[2022-12-07] MEDS: ACETAMINOPHEN 325 MG TAB PO PRN (20:12)
[2022-12-07] MEDS: ATORVASTATIN 20 MG TAB PO SCH (23:26)
[2022-12-08] VITALS (28 sets, daily range): BP systolic 107–167; BP diastolic 62–96; PULSE 58–84; RESP 9–25; TEMP 98–99.1; O2SAT 82–96
[2022-12-08] MEDS: ACCU-CHEK COMFORT CURVE STRIP VI SCH ×4 (05:47→21:24)
[2022-12-08] MEDS: InsuLIN REG 1unit/0.01ml Soln (100units/ml) SC SCH ×4 (05:48→21:25)
[2022-12-08 07:39] LABS: Basophils # (auto) 0 10 ^3/uL (0-0.2); Basophils % (auto) 0.2 % (0.0-2.0); Eosinophils # (auto) 0.1 10 ^3/uL (0-0.8); Eosinophils % (auto) 0.4 % (0.0-7.0); Hematocrit 47.5 % (41.0-53.0); Hemoglobin 15.9 g/dL (13.5-17.5); Lymphocytes # (auto) 1.6 10 ^3/uL (0.4-5.4); Lymphocytes % (auto) 11.5 % (10.0-50.0); Mean Corpuscular Hemoglobin 29.3 pg (28.0-32.0); Mean Corpuscular Hgb Conc. 33.5 g/dL (32.0-36.0); Mean Corpuscular Volume 87.7 fL (80.0-100.0); Monocytes # (auto) 2.3 10 ^3/uL (0-1.3); Neutrophils # (auto) 10.2 10 ^3/uL (1.6-8.6); Neutrophils % (auto) 71.9 % (37.0-80.0); Nucleated Red Blood Cells % 0.2 %; Red Blood Cells 5.42 10^6/uL (4.5-5.90); Red Cell Distribution Width 14.3 % (11.8-14.3); White Blood Cell 14.1 10^3/uL (4.4-10.8)
[2022-12-08] MEDS: EMPAGLIFLOZIN 10 MG TAB PO SCH (07:46)
[2022-12-08 07:56] LABS: Alanine Aminotransferase 20 U/L (7-40); Albumin 4.5 g/dL (3.2-4.8); Alkaline Phosphatase 63 U/L (46-116); Anion Gap 7 (5-15); Aspartate Aminotransferase 28 U/L (13-40); Blood Urea Nitrogen 18 mg/dL (9-23); Calcium 9.5 mg/dL (8.7-10.4); Carbon Dioxide 24 mmol/L (20-30); Chloride 101 mmol/L (98-107); Glucose 145 mg/dL (74-106); Magnesium 2.3 mg/dL (1.6-2.6); Sodium 132 mmol/L (136-145)
[2022-12-08 07:57] LABS: Bilirubin, Total 0.8 mg/dL (0.2-1.0); Total Protein 7.1 g/dL (5.7-8.2)
[2022-12-08] MEDS: cefTRIAXone 1GM/50ML D5W 50 ML IV SCH (09:16)
[2022-12-08] MEDS: LISINOPRIL 20 MG TAB PO SCH (10:00)
[2022-12-08] MEDS: PANTOPRAZOLE 40 MG TAB PO SCH (10:07)
[2022-12-08] MEDS: METOPROLOL TARTRATE 25 MG TAB PO SCH ×2 (10:07→21:13)
[2022-12-08] MEDS ORDERED: PARoxetine 20 MG TAB PO ONE (11:45)
[2022-12-08] MEDS: FUROSEMIDE 20 MG/2 ML VIAL IV SCH (17:55)
[2022-12-08] MEDS ORDERED: TAMSULOSIN HYDROCHLORIDE 0.4 MG CAP PO SCH (18:00)
[2022-12-08] MEDS: ATORVASTATIN 20 MG TAB PO SCH (21:13)
[2022-12-09] VITALS (20 sets, daily range): BP systolic 110–172; BP diastolic 50–86; PULSE 61–86; RESP 11–21; TEMP 97.6–98.7; O2SAT 90–99
[2022-12-09] MEDS: EMPAGLIFLOZIN 10 MG TAB PO SCH (06:25)
[2022-12-09] MEDS: ACCU-CHEK COMFORT CURVE STRIP VI SCH ×2 (06:28→11:32)
[2022-12-09] MEDS: InsuLIN REG 1unit/0.01ml Soln (100units/ml) SC SCH ×2 (06:35→11:35)
[2022-12-09] MEDS ORDERED: HYDROcodone-ACET 5/325MG TAB PO PRN (09:15)
[2022-12-09] MEDS: cefTRIAXone 1GM/50ML D5W 50 ML IV SCH (09:26)
[2022-12-09] MEDS: PANTOPRAZOLE 40 MG TAB PO SCH (09:43)
[2022-12-09] MEDS: METOPROLOL TARTRATE 25 MG TAB PO SCH (09:45)
[2022-12-09] MEDS: LISINOPRIL 20 MG TAB PO SCH (09:46)
[2022-12-09] MEDS ORDERED: PARoxetine 20 MG TAB PO SCH (10:00)
[2022-12-09] MEDS ORDERED: SPIRONOLACTONE 25 MG TAB PO SCH (10:00)
[2022-12-09] MEDS ORDERED: SPIR25TA PO (12:31)
[2022-12-09] MEDS ORDERED: MET25T PO (12:31)
[2022-12-09] MEDS ORDERED: EMPA1TAB PO (12:31)
== END 2022-12-09 15:38 | disposition home or self-care (01) | DRG 280 ==
LOC: ER 12:48 → TELE 15:51 → ICU WEST 16:07
PROVIDERS: ADMIT Internal Medicine Geriatric Medicine; ATTEND Internal Medicine Geriatric Medicine
PROC: 4A023N7 Measurement of Cardiac Sampling and Pressure, Left Heart, Percutaneous Approach (ICD-10-PCS; principal; 2022-12-06)
PROC: B211YZZ Fluoroscopy of Multiple Coronary Arteries using Other Contrast (ICD-10-PCS; 2022-12-06)
PROC: B213YZZ Fluoroscopy of Multiple Coronary Artery Bypass Grafts using Other Contrast (ICD-10-PCS; 2022-12-06)
PROC: B218YZZ Fluoroscopy of Left Internal Mammary Bypass Graft using Other Contrast (ICD-10-PCS; 2022-12-06)
PROC: B215YZZ Fluoroscopy of Left Heart using Other Contrast (ICD-10-PCS; 2022-12-06)
DX: I11.0 Hypertensive heart disease with heart failure (principal); I21.A1 Myocardial infarction type 2; I50.43 Acute on chronic combined systolic (congestive) and diastolic (congestive) heart failure; N13.2 Hydronephrosis with renal and ureteral calculous obstruction; I16.1 Hypertensive emergency; N17.9 Acute kidney failure, unspecified; E78.5 Hyperlipidemia, unspecified; E11.9 Type 2 diabetes mellitus without complications; G89.29 Other chronic pain; R33.9 Retention of urine, unspecified; R80.9 Proteinuria, unspecified; I25.10 Atherosclerotic heart disease of native coronary artery without angina pectoris; F17.210 Nicotine dependence, cigarettes, uncomplicated; R31.9 Hematuria, unspecified; E66.9 Obesity, unspecified; Z68.27 Body mass index [BMI] 27.0-27.9, adult; Z88.5 Allergy status to narcotic agent; Z79.82 Long term (current) use of aspirin; Z79.02 Long term (current) use of antithrombotics/antiplatelets; Z82.49 Family history of ischemic heart disease and other diseases of the circulatory system; Z79.899 Other long term (current) drug therapy; Z83.3 Family history of diabetes mellitus; Z95.1 Presence of aortocoronary bypass graft; Z95.5 Presence of coronary angioplasty implant and graft
CPT/HCPCS: 36415; 71045; 74176; 74177; 76775; 80053; 80061; 81001; 82962; 83036; 83690; 83735; 83880; 84132; 84443; 84484; 85025; 85610; 85730; 87081; 87086; 93005; 93306; 96374; 96375; 97110; 97116; 97163; 97530; 99152; 99153; 99291; G0378; J0696; J1815; J2250; J2405; Q9956; Q9967